=== PATIENT | female | born 2005 | race Caucasian/White ===

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

== ENCOUNTER 2024-02-29 16:28 | Emergency (ER) | payer OTHER, BC ==
[~2024-02-29] VITALS: Ht 170.2 cm; Wt 63.5 kg
[2024-02-29 16:40] VITALS: BP 129/91
[2024-02-29] MEDS ORDERED: Diphth,Pertuss(Acell),Tet Vac 0.5 ML VIAL IM ONE (17:20)
[2024-02-29] MEDS ORDERED: Amoxicillin/Clavulanate K 875 MG Tab PO ONE (18:35)
[2024-02-29] MEDS ORDERED: AMOCLA875 PO (18:37)
== END 2024-02-29 19:14 | disposition home or self-care (01) ==
LOC: ER 16:28
DX: S61.551A Open bite of right wrist, initial encounter (principal); S61.452A Open bite of left hand, initial encounter; W54.0XXA Bitten by dog, initial encounter
CPT/HCPCS: 12001; 73130; 90471; 90715; 99283-25; A9270